=== PATIENT | male | born 1960 | race Caucasian/White ===

== ENCOUNTER 2017-01-03 22:39 | Emergency (ER) | payer BC, OTHER ==
[~2017-01-03] VITALS: Ht 188 cm; Wt 93.0 kg
[2017-01-03 22:45] VITALS: BP 155/87
--- NOTE | 2017-01-03 22:50 | NUR ---
PATIENT AMBULATED TO ER BED 7.
--- NOTE | 2017-01-03 22:52 | NUR ---
Stacy velásquez in [facility] - 01/03/17 at 2253 by [email or web address] PATIENT BEING EVALUATED BY DR. VALENTE.
--- NOTE | 2017-01-03 22:52 | NUR ---
PATIENT PRESENTS TO ED WITH DOGBITE, LEFT KNEE AND ABD AT 1900HOURS,NOTED DRY ABRASION ON ABDOMEN AND LEFT KNEE PT STATES I WAS BITTEN BY HOUSE DOG,AND THE DOG IS UPDATED WITH THE VACCINE, DENIES N/V/D; SKIN IS PINK/WARM/DRY; AAOX4 WITH EVEN AND STEADY GAIT; LUNGS CLEAR BL; HR EVEN AND REGULAR; PT DENIES ANY FEVER, CP, SOB, OR COUGH AT THIS TIME; PATIENT STATES PAIN OF 3/10 AT THIS TIME; ATIENT POSITIONED FOR COMFORT; HOB ELEVATED; BEDRAILS UP X2; BED DOWN.
--- NOTE | 2017-01-03 22:52 | NUR ---
DR. VALENTE ARE BEDSIDE
[2017-01-03] MEDS ORDERED: NEOMYCIN/POLYMYXIN/BACITRACIN OIN 15 GM TUBE TP ONE (23:30)
[2017-01-03 23:44] VITALS: BP 135/96
== END 2017-01-03 23:44 | disposition home or self-care (01) ==
LOC: MED 22:39
DX: S31.159A Open bite of abdominal wall, unspecified quadrant without penetration into peritoneal cavity, initial encounter (principal); S81.052A Open bite, left knee, initial encounter; R03.0 Elevated blood-pressure reading, without diagnosis of hypertension; W54.0XXA Bitten by dog, initial encounter; Y93.89 Activity, other specified; Y92.89 Other specified places as the place of occurrence of the external cause; Y99.8 Other external cause status
CPT/HCPCS: 90471; 90715; 99283